=== PATIENT | male | born 1955 | race Caucasian/White ===

== ENCOUNTER 2019-02-03 15:41 | Observation (INO) ==
[2019-02-03] MEDS ORDERED: LOVENOX SUBQ ONE (16:38)
[2019-02-03 16:54] LABS: BASO# 0.02 X1000 (0.0-0.2); BASO% 0.3 % (0.0-0.8); EOS# 0.01 X1000 (0.0-0.7); EOS% 0.1 % (0.0-10.0); HEMATOCRIT 39.5 % (42.0-52.0); HEMOGLOBIN 13.1 g/dL (14.0-18.0); IMM GRAN# 0.01 X1000 (0.0-0.04); IMM GRAN% 0.1 % (0.0-0.5); LYMPH# 1.14 X1000 (1.2-3.4); LYMPH% 14.9 % (20.5-51.1); MCH 31.3 PG (27-31); MCHC 33.2 g/dL (33-37); MCV 94.3 FL (81-99); MONO# 0.11 X1000 (0.11-0.59); MONO% 1.4 % (1.7-9.3); MPV 11.2 FL (7.4-10.4); NEUT# 6.34 X1000 (1.4-6.5); NEUT% 83.2 % (42.2-75.2); PLT 152 X1000 (130-400); RBC 4.19 XMIL (4.7-6.1); RDW 13.6 % (11.5-14.5); WBC 7.63 X1000 (4.8-10.8)
--- NOTE | 2019-02-03 16:55 | PROVIDER DOCUMENTATION ---
HPI-General Adult - General Chief Complaint: General Adult Stated Complaint: POSS BLOOD CLOTS Time Seen by Provider: 02/03/19 16:38 Source: patient Allergies/Adverse Reactions: Patient Allergies Allergy/AdvReac Type Severity Reaction Status Date / Time codeine Allergy Intermediate RASH Verified 03/02/13 15:49 Home Medications: Home Medication List Medication Instructions Recorded Confirmed Last Taken Type Cyclobenzaprine HCl [Flexeril] 10 mg PO TID #15 tablet 03/02/13 Unknown Rx Naproxen 500 mg PO BID #60 tablet 03/02/13 08/14/13 06:30 Rx Buspar 15 mg PO BID 08/14/13 08/14/13 08/14/13 06:30 History Carvedilol [Coreg] 6.25 mg PO BID 08/14/13 08/14/13 08/14/13 06:30 History Clonidine [Catapres] 1 tab PO DAILY 08/14/13 08/14/13 08/14/13 06:30 History LISINOpril [Prinivil] 20 mg PO BID 08/14/13 08/14/13 08/14/13 06:30 History Lansoprazole [Prevacid] 30 mg PO DAILY 08/14/13 08/14/13 08/14/13 06:30 History PRAVAstatin [Pravachol] 40 mg PO DAILY 08/14/13 08/14/13 08/14/13 06:30 History Terazosin [Hytrin] 10 mg PO DAILY 08/14/13 08/14/13 08/14/13 06:30 History Benzonatate [Tessalon] 100 mg PO Q8H #0 capsule 08/18/13 Unknown Rx Levofloxacin [Levaquin] 500 mg PO DAILY #0 tablet 08/18/13 Unknown Rx Methylprednisolone [Medrol Dosepak] 4 mg PO DIRECTED #0 package 08/18/13 Unknown Rx Tiotropium [place] Inhaler 1 puff INH RTDAILY #0 inhaler 08/18/13 Unknown Rx [Spiriva] Cephalexin [Keflex] 500 mg PO BID #14 cap 12/22/17 Unknown Rx Hydrocodone/APAP 7.5 mg/325 mg 1 ea PO Q6H PRN PRN #12 tab 12/22/17 Unknown Rx [[place]-7.5] Past History - Adult - IMMUNIZATION STATUS Childhood Immunizations: See Nurse Assessment Flu Vaccine: See Nurse Assessment - FAMILY HISTORY Family History: reviewed, not pertinent Progress - PLAN OF CARE/RESULTS Progress/Plan/Lab Results: Vital Signs - 8 hr 02/03/19 15:47 Temperature 98.1 F Pulse Rate 116 H Respiratory Rate 19 Blood Pressure 152/92 O2 Sat by Pulse Oximetry 95 Orders Category Date Time Status CBC WITH DIFF [HEME] Stat Lab 02/03/19 16:13 Results COMPREHENSIVE METABOLIC PANEL [CHEM] Stat Lab 02/03/19 16:13 Received PROTIME WITH INR [COAG] Stat Lab 02/03/19 16:13 Received PTT [COAG] Stat Lab 02/03/19 16:13 Received Enoxaparin [Lovenox] Med 02/03/19 16:38 Discontinued 100 mg SUBQ NOW ONE EKG [EKG] Routine Ther 02/03/19 16:39 Ordered Result Diagrams: 02/03/19 16:13 Departure - Departure Referrals and Follow-Ups: Jessica Nuno MD [Primary Care Provider] -
--- NOTE | 2019-02-03 16:58 | PROVIDER DOCUMENTATION ---
This chart was entered by Brigid Kirkland Scribe, acting as scribe for Liam Mckeon MD. HPI-General Adult - General Chief Complaint: General Adult Stated Complaint: POSS BLOOD CLOTS Time Seen by Provider: 02/03/19 16:38 Source: patient Allergies/Adverse Reactions: Patient Allergies Allergy/AdvReac Type Severity Reaction Status Date / Time codeine Allergy Intermediate RASH Verified 03/02/13 15:49 Home Medications: Home Medication List Medication Instructions Recorded Confirmed Last Taken Type Cyclobenzaprine HCl [Flexeril] 10 mg PO TID #15 tablet 03/02/13 Unknown Rx Naproxen 500 mg PO BID #60 tablet 03/02/13 08/14/13 06:30 Rx Buspar 15 mg PO BID 08/14/13 08/14/13 08/14/13 06:30 History Carvedilol [Coreg] 6.25 mg PO BID 08/14/13 08/14/13 08/14/13 06:30 History Clonidine [Catapres] 1 tab PO DAILY 08/14/13 08/14/13 08/14/13 06:30 History LISINOpril [Prinivil] 20 mg PO BID 08/14/13 08/14/13 08/14/13 06:30 History Lansoprazole [Prevacid] 30 mg PO DAILY 08/14/13 08/14/13 08/14/13 06:30 History PRAVAstatin [Pravachol] 40 mg PO DAILY 08/14/13 08/14/13 08/14/13 06:30 History Terazosin [Hytrin] 10 mg PO DAILY 08/14/13 08/14/13 08/14/13 06:30 History Benzonatate [Tessalon] 100 mg PO Q8H #0 capsule 08/18/13 Unknown Rx Levofloxacin [Levaquin] 500 mg PO DAILY #0 tablet 08/18/13 Unknown Rx Methylprednisolone [Medrol Dosepak] 4 mg PO DIRECTED #0 package 08/18/13 Unknown Rx Tiotropium [place] Inhaler 1 puff INH RTDAILY #0 inhaler 08/18/13 Unknown Rx [Spiriva] Cephalexin [Keflex] 500 mg PO BID #14 cap 12/22/17 Unknown Rx Hydrocodone/APAP 7.5 mg/325 mg 1 ea PO Q6H PRN PRN #12 tab 12/22/17 Unknown Rx [[place]-7.5] - History of Present Illness -Gen Adult Nature of Presenting Problems: 63yom presents to ED cc blood clot in left leg that was found by PCP today. Pt cc SOB and pain in both legs. Pt reports he just got back from flying to and from [place]. Pt has hx of RA and has trouble walking/uses a cane. Location of Pain/Injury: reports: lower extremity (both legs), generalized Quality of Pain: reports: aching, tightness Severity: reports: moderate Onset/Duration: reports: unsure Timing: reports: still present Context/Activities at Onset: reports: light activity (flying) Modifying Factors: worse with: breathing, exercise, movement, palpation Associated Symptoms: reports: shortness of breath, weakness, trouble walking Similar Symptoms Previously?: Yes Recently seen or treated by another doctor?: Yes (saw PCP captain waiter/waitress at ED) Review of Systems - Adult - REVIEW OF SYSTEMS - ADULT Constitutional: reports: see HPI, fatique. denies: chills, fever Eyes: reports: no symptoms reported Ears, Nose, Mouth & Throat: reports: no symptoms reported Cardiovascular: reports: no symptoms reported Respiratory: reports: see HPI, shortness of breath Gastrointestinal: reports: no symptoms reported Genitourinary: reports: no symptoms reported Musculoskeletal: reports: see HPI, muscle aches, muscle weakness Integumentary: reports: no symptoms reported Neurological: reports: see HPI, loss of balance Psychiatric: reports: no symptoms reported Endocrine: reports: no symptoms reported Hematologic/Lymphatic: reports: no symptoms reported Allergic/Immunologic: reports: no symptoms reported All Other Systems: Reviewed and Negative Past History - Adult - PAST MEDICAL HISTORY-ADULT Review of Records: reports: Nursing Assessment Review, Medications Reviewed, Social history reviewed & non-contributory. Major Childhood Illnesses: reports: denies history Cardiovascular: reports: denies history Respiratory: reports: denies history Gastrointestinal: reports: denies history Obstetrical/Gynecological: reports: denies history Genitourinary: reports: denies history Musculoskeletal: reports: denies history Neurological: reports: denies history Endocrine/Immune: reports: denies history Other Conditions: reports: denies history - IMMUNIZATION STATUS Childhood Immunizations: See Nurse Assessment Flu Vaccine: See Nurse Assessment - FAMILY HISTORY Family History: reviewed, not pertinent - SOCIAL HISTORY Smoking: cigarettes, greater than 1 pack/day Provider spent 3-5 mins advising pt. on dangers of tobacco.: Discussed manners to quit use, and f/u contacts for add'l counseling. Physical Exam-General - PHYSICAL EXAM-ADULT Initial Vital Signs Reviewed: Yes - CONSTITUTIONAL General Appearance: appears well, alert, no apparent distress. negative: anxious, combative - EYES Eyes: PERRL/EOMI, pink conjunctivae. negative: photophobia - HEAD, EARS, NOSE, MOUTH & THROAT HENMT: normocephalic/atraumatic, moist mucous membranes. negative: angioedema - RESPIRATORY Respiratory: chest non-tender, lungs clear, normal breath sounds. negative: wheezing - CARDIOVASCULAR Cardiovascular: normal peripheral pulses, tachycardia. negative: regular rate, rhythm, bradycardia - MUSCULOSKELETAL Extremity: normal inspection, normal capillary refill. negative: swelling - SKIN Integumentary: normal color. negative: diaphoresis, jaundice - PSYCHIATRIC Psych/Mental Status: normal mood/affect, oriented x 3. negative: anxious, disheveled Progress - PLAN OF CARE/RESULTS Progress/Plan/Lab Results: Vital Signs - 8 hr 02/03/19 15:47 Temperature 98.1 F Pulse Rate 116 H Respiratory Rate 19 Blood Pressure 152/92 O2 Sat by Pulse Oximetry 95 Orders Category Date Time Status CBC WITH DIFF [HEME] Stat Lab 02/03/19 16:13 Results COMPREHENSIVE METABOLIC PANEL [CHEM] Stat Lab 02/03/19 16:13 Received PROTIME WITH INR [COAG] Stat Lab 02/03/19 16:13 Received PTT [COAG] Stat Lab 02/03/19 16:13 Received Result Diagrams: 02/03/19 16:13 - CONSULTS/PCP/HOSPITALIST Notification #1 *Consult/PCP/Hospitalist*: Dr. Jj Time Discussed: 16:48 Consult Disposition: other (pt will be admitted to [facility]) Departure - Departure Date of Disposition Decision: 02/03/19 Time of Disposition Decision: 16:45 DIAGNOSIS: DVT of lower extremity, bilateral Qualifiers: Affected thrombotic vein of extremity: unspecified vein of extremity Chronicity: unspecified Qualified Code(s): I82.403 - Acute embolism and thrombosis of unspecified deep veins of lower extremity, bilateral DIAGNOSIS: (Ruled Out): DVT of axillary vein, acute bilateral Disposition: ADMITTED INPATIENT 09 Certified Medical Emergency: Emergent Condition: Stable Additional Freetext Instructions: ED Follow Up Instructions: You have been treated by a care provider in the Emergency Department. These instructions are being provided to you so you can have an understanding of how to care for yourself upon discharge. Upon discharge from the Emergency D epartment, you are responsible for making arrangements for follow-up care by a physician of your choice. Take all prescribed medications as directed. Return to the Emergency Department immediately for any new or worsening symptoms. You may call the Physician Referral phone number at [phone] to obtain a list of Physicians who are taking new patients. Referrals and Follow-Ups: Jessica Nuon MD [Primary Care Provider] - Discharge Education: Steps to Quit Smoking, [id number], Deep Vein Thrombosis - Critical Care Note This patient required my direct & personal management of CC.: No Attestation - Physician/ CANDICE Attestation Patient care was provided by Advanced Practice Provider:: No The physician spent face to face time with patient:: Yes Advanced Practice Provider documentation review:: Supervising physician onsite and consulted in the evaluation and care of this patient. The physician did have a face to face encounter with the patient. This chart was documented by the indicated scribe, (Brigid Kirkland Scribe) and accurately reflects the services I performed and decisions made by me, Liam Mckeon MD, as attested by the provider's signature.
[2019-02-03 17:01] LABS: INR 0.93; PROTIME 12.9 Seconds (11.0-16.0)
[2019-02-03 17:06] LABS: CALCIUM 8.6 mg/dL (8.8-10.2); CREATININE 1.3 mg/dL (0.7-1.2); POTASSIUM 4.4 mmol/L (3.5-5.1); TOTAL BILIRUBIN 0.3 mg/dL (0.20-1.00); TOTAL PROTEIN 6.7 g/dL (6.3-8.3)
[2019-02-03] MEDS ORDERED: TYLENOL PO PRN (17:58)
[2019-02-03] MEDS ORDERED: ZOFRAN IV PRN (17:58)
[2019-02-03] MEDS ORDERED: MORPHINE IV ONE (18:19)
[2019-02-03] MEDS ORDERED: XANAX PO ONE (18:20)
[2019-02-03] MEDS ORDERED: XANAX PO PRN (18:20)
[2019-02-03] MEDS ORDERED: XOPENEX NEB INH PRN (18:28)
[2019-02-03] MEDS: XOPENEX NEB INH SCH ×2 (19:42→23:26)
[2019-02-03] MEDS: NORCO-10 PO PRN (20:54)
[2019-02-03] MEDS: PEPCID PO SCH (20:54)
--- NOTE | 2019-02-03 23:25 | HISTORY AND PHYSICAL ---
PRIMARY CARE PROVIDER: Dr. Nuno. CHIEF COMPLAINT: Patient was sent to the ED by his primary care provider, Dr. Nuno, for imaging that showed bilateral pulmonary emboli. HISTORY OF PRESENT ILLNESS: Mr. Avila is a 63-year-old male who carries a past medical history of rheumatoid arthritis, coronary artery disease status post stenting, I believe to the RCA with a [employer], non-Hodgkin's lymphoma, it has been in remission since 1999, COPD, continues to smoke 1 pack per day, nonfunctioning left kidney, internal hemorrhoids, BPH, hypertension general anxiety, hyperlipidemia, GERD. He underwent a pulmonary arteriogram today for Dr. Nuno for shortness of breath and edema. He had recent travel to [place] 1 week ago. He flew out there for his daughter's , who he suddenly lost undergoing a routine GI procedure. He reports that he has had some hemoptysis as well as some bright red blood per rectum that has been going on for quite some time, that happens intermittently. He does report subjective fever and chills. However, he also complains of being hot all the time. He has had some chest pain associated with his shortness of breath. He complains of left leg pain. There is no nausea, vomiting, diarrhea. He reports that he has had a couple of syncopal episodes since all this began this week. He states he starts coughing and gets so short of breath that he will just lose consciousness. He was initiated on full dose Lovenox in the ER, and which we will continue with that q.12 hours and do a hypercoagulable workup. PAST MEDICAL HISTORY: 1. Non-Hodgkin's lymphoma. 2. Rheumatoid arthritis. 3. Coronary artery disease status post stenting, I believe, to the RCA. 4. COPD, continues to smoke a pack a day. 5. Left nonfunctioning kidney. 6. Benign prostatic hypertrophy. 7. Hypertension. 8. Internal hemorrhoids. 9. Generalized anxiety. 10. Hyperlipidemia. 11. GERD. PAST SURGICAL HISTORY: 1. Appendectomy. 2. Back surgery. 3. Left ankle surgery. 4. Removal of cyst from the left testicle. 5. Bilateral inguinal hernia repair. 6. Left shoulder surgery. 7. Right carpal tunnel. HOME MEDICATIONS: Have not been verified. ALLERGIES: Codeine. SOCIAL HISTORY: He is . He just recently lost his daughter at the age of 41 due to a routine GI procedure, this was the reason for his recent travel to [place]. He has been disabled for the past 5 years. He used to be a truck and transport mechanic. He lives in [place]. He continues to smoke 1 pack of cigarettes per day and has done so for more than 30 years. Occasional alcohol, occasional marijuana to help with his nerves. FAMILY HISTORY: Father of lung cancer at the age of 82. Mom of COPD, also had diabetes. REVIEW OF SYSTEMS: Twelve-point review of systems completely negative except for those mentioned in HPI. PHYSICAL EXAMINATION: VITAL SIGNS: Temperature is 98 degrees, heart rate 94, respirations 20, blood pressure 149/98, O2 saturation is 98% on room air. GENERAL: Mr. Avila is a very anxious appearing 63-year-old male who is sitting up in the bed, in no apparent distress, is very talkative. HEENT: Atraumatic, normocephalic. PERRL. NECK: Supple. Trachea midline. CARDIOVASCULAR: S1, S2 appreciated. No murmurs, gallops, rubs noted. RESPIRATORY: Lung sounds clear bilaterally. GASTROINTESTINAL: Soft, nontender, nondistended. Positive bowel sounds 4 quadrants. EXTREMITIES: Lower extremities are negative for edema. Bilateral pedal pulses are palpable. NEUROLOGIC: No focal deficits are noted. He does walk with a cane. DIAGNOSTIC DATA: Pulmonary arteriogram shows several bilateral PE's that appear mostly to be acute. LABORATORY DATA: White count 7, hemoglobin and hematocrit 13 and 39, platelet count is 152,000. Sodium 138, potassium 4.4, BUN 13, creatinine 1.3. Blood glucose is 166. PT 12, INR 0.93. ASSESSMENT AND PLAN: 1. Acute bilateral pulmonary emboli. He has been given a full dose of subcu Lovenox in the ED. We will continue with full-dose Lovenox q.12 hours. We will do a hypercoagulable workup. Continue him on supplemental O2. Pain control. 2. Generalized anxiety. We will give him Xanax and p.r.n. Xanax. 3. Coronary artery disease status post stenting. 4. Hypertension. 5. Hyperlipidemia. 6. History of non-Hodgkin's lymphoma. 7. Left nonfunctioning kidney. 8. Chronic obstructive pulmonary disease. We will do Xopenex scheduled and p.r.n. 9. Tobacco use and abuse. The patient will need further smoking cessation education. 10. Marijuana use, only occasionally for anxiety. 11. Further recommendation to follow physician evaluation, laboratory, and diagnostic data, and update of home medications. Dictated by TIFFANI Dupree for Gabriel Mack MD cc: MD Jessica Gill MD
[2019-02-04] MEDS: LOVENOX SUBQ SCH ×2 (05:51→18:17)
--- NOTE | 2019-02-04 06:02 | HISTORY AND PHYSICAL ---
ADDENDUM: Patient seen and examined by myself. Full note dictated and discussed with nurse practitioner. Patient presented to the hospital with an elevated D-dimer and pulmonary emboli. Upon coming into the hospital, placed him on Lovenox. Hopefully, he can transition to Xarelto or Eliquis and be discharged home over the next day or so. cc: Gabriel Mack MD
[2019-02-04 06:58] LABS: BASO# 0.02 X1000 (0.0-0.2); BASO% 0.2 % (0.0-0.8); EOS# 0.03 X1000 (0.0-0.7); EOS% 0.3 % (0.0-10.0); HEMATOCRIT 36.5 % (42.0-52.0); HEMOGLOBIN 11.9 g/dL (14.0-18.0); IMM GRAN# 0.03 X1000 (0.0-0.04); IMM GRAN% 0.3 % (0.0-0.5); LYMPH# 4.75 X1000 (1.2-3.4); LYMPH% 46.8 % (20.5-51.1); MCH 30.7 PG (27-31); MCHC 32.6 g/dL (33-37); MCV 94.1 FL (81-99); MONO# 0.87 X1000 (0.11-0.59); MONO% 8.6 % (1.7-9.3); NEUT# 4.45 X1000 (1.4-6.5); NEUT% 43.8 % (42.2-75.2); PLT 138 X1000 (130-400); RBC 3.88 XMIL (4.7-6.1); RDW 13.5 % (11.5-14.5); WBC 10.15 X1000 (4.8-10.8)
[2019-02-04 07:29] LABS: AGAP 9; ALBUMIN 3.6 g/dL (3.5-5.0); ALKALINE PHOSPHATASE 57 U/L (32-122); BUN 19 mg/dL (8-22); CALCIUM 8.3 mg/dL (8.8-10.2); CHLORIDE 102 mmol/L (98-107); COSMO 280; ESTIMATED GFR > 60; GLUCOSE 102 mg/dL (70-104); GOT 11 U/L (10-34); GPT 9 U/L (10-44); POTASSIUM 3.9 mmol/L (3.5-5.1); SODIUM 139 mmol/L (136-145); TCO2 28 mmol/L (25-35)
[2019-02-04] MEDS ORDERED: MORPHINE IV PRN (08:17)
[2019-02-04] MEDS: CELEBREX PO SCH ×2 (08:58→21:21)
[2019-02-04] MEDS: CYMBALTA PO SCH (08:58)
[2019-02-04] MEDS: SINGULAIR PO SCH (08:59)
[2019-02-04] MEDS: PEPCID PO SCH ×2 (08:59→21:22)
--- NOTE | 2019-02-04 08:59 | EKG Report ---
Test Performed on : 02/04/2019 08:27:26 AM Test Reason : CHEST PAIN Blood Pressure : / mmHG Vent. Rate : 075 BPM Atrial Rate : 075 BPM P-R Int : 148 ms QRS Dur : 086 ms QT Int : 388 ms P-R-T Axes : 053 067 061 degrees QTc Int : 433 ms Normal sinus rhythm. Normal ECG When compared with ECG of 15-AUG-2013 06:58, No significant change was found Confirmed by Liam Mckeon MD ([id number]) on 02/18/2019 11:49:40 AM
[2019-02-04] MEDS: ZYLOPRIM PO SCH ×2 (09:00→21:22)
[2019-02-04] MEDS ORDERED: PREDNISONE PO SCH (09:00)
[2019-02-04] MEDS: PRINIVIL PO SCH (09:01)
[2019-02-04] MEDS: COREG PO SCH ×2 (09:01→21:22)
[2019-02-04] MEDS: FOLIC ACID PO SCH (09:01)
[2019-02-04] MEDS: XOPENEX NEB INH SCH (09:11)
[2019-02-04] MEDS ORDERED: ATIVAN IV ONE (09:23)
--- NOTE | 2019-02-04 13:21 | PROGRESS NOTE ---
DATE: 02/04/2019 SUBJECTIVE: The patient is feeling somewhat better, although he has been having body aches. He denies having any other issues. OBJECTIVE: Vital Signs: Temperature 98.4 degrees, pulse 84 per minute, respiratory rate 16 per minute, blood pressure 199/134, pulse oximetry 100% on room air. General: The patient is alert and oriented x3. He appears to be very anxious. Cardiovascular System: First and second heart sounds are audible without any murmurs or gallops. Respiratory System: Bilateral lung air entry is moderately decreased with bilateral rhonchi present on expiration. Gastrointestinal: Abdomen is benign. DIAGNOSTIC DATA: CBC shows WBC count of 10.15, hematocrit is 36.5, hemoglobin 11.9, and platelet count of 138,000. Comprehensive metabolic panel done this morning is nondiagnostic. He does have improvement of creatinine from 1.3 yesterday to 1.0 today. IMPRESSION: 1. Acute bilateral pulmonary embolism. 2. Chronic obstructive pulmonary disease. 3. Coronary artery disease that is stable. 4. Hypertension that is uncontrolled. 5. Rheumatoid arthritis. 6. Anxiety disorder. PLAN: The patient will be continued on enoxaparin 100 mg subcutaneously every 12 hours. We are going to restart his home medications including duloxetine and lisinopril along with carvedilol since his blood pressure has been elevated. He will receive bronchodilators on an as needed basis, and I am going to give him morphine sulfate 2 mg IV as needed for body aches and pain. He can probably be discharged home tomorrow if stable on oral anticoagulants. He will need to complete a therapy of Xarelto or similar anticoagulants for at least 6 months. cc: Jessica Nuno MD
[2019-02-04] MEDS: ATIVAN IV PRN (18:17)
[2019-02-04] MEDS ORDERED: HYTRIN PO SCH (21:00)
[2019-02-04] MEDS ORDERED: CRESTOR PO SCH (21:00)
[2019-02-05] MEDS: ATIVAN IV PRN ×2 (00:05→08:57)
[2019-02-05] MEDS: NORCO-10 PO PRN (00:05)
[2019-02-05] MEDS: LOVENOX SUBQ SCH (06:15)
[2019-02-05] MEDS ORDERED: NEXIUM PO SCH (07:00)
[2019-02-05 08:15] VITALS: BP 185/101
[2019-02-05] MEDS: ZYLOPRIM PO SCH (08:56)
[2019-02-05] MEDS: PRINIVIL PO SCH (08:56)
[2019-02-05] MEDS: COREG PO SCH (08:56)
[2019-02-05] MEDS: CYMBALTA PO SCH (08:56)
[2019-02-05] MEDS: CELEBREX PO SCH (08:56)
[2019-02-05] MEDS: PEPCID PO SCH (08:57)
[2019-02-05] MEDS: SINGULAIR PO SCH (08:57)
[2019-02-05] MEDS: FOLIC ACID PO SCH (08:57)
--- NOTE | 2019-02-05 16:46 | DISCHARGE SUMMARY ---
ADMISSION DATE: 02/03/2019 DISCHARGE DATE: 02/05/2019 DISCHARGE DIAGNOSES: 1. Acute bilateral pulmonary emboli. 2. Chronic obstructive pulmonary disease. 3. Coronary artery disease. 4. Hypertension. 5. Rheumatoid arthritis. 6. Anxiety disorder. HOSPITAL COURSE: Mr. Avila is a 63-year-old gentleman who has extensive past medical history including rheumatoid arthritis, coronary artery disease, COPD, and hypertension. He presented to the office last week with issue of cough and chest congestion. He was also having wheezing. He reported some recent travel to [place] for his daughter's at which time he had reported to have bilateral leg swelling. He had a venous Doppler ultrasound study of his left lower extremity; that was found to be negative. Subsequently, he had a CT scan of the chest for pulmonary arteries, and that showed bilateral pulmonary emboli, for which he was admitted to the hospital and was treated with enoxaparin 1 mg/kg subcutaneously every 12 hours. He has also been having significant anxiety that was treated with IV lorazepam. His overall condition has improved, and therefore he is planned to be discharged home today. I have given him 2 weeks' worth of Xarelto 15 mg to be taken as twice daily, and we are going to see if we can get him approval for the medication through his insurance. I have advised him that he will need to take Xarelto 15 mg twice daily for 3 weeks and then take Xarelto as 20 mg once daily thereafter to complete the course of 6 months. DISCHARGE MEDICATIONS: 1. Xarelto 15 mg orally twice daily for 3 weeks and then continue as 20 mg orally once daily for a total of 6 months. 2. Allopurinol 150 mg orally twice daily. 3. Alprazolam 0.5 mg 3 times a day as needed for pain. 4. [place] 10 mg orally every 6 hours as needed for significant pain. 5. Carvedilol 3.125 mg orally twice daily. 6. Duloxetine 90 mg orally once daily. 7. Nexium 40 mg orally once daily in the morning 8. Enbrel 50 mg subcutaneously as ordered. 9. Folic acid 1 mg orally once daily. 10. Lisinopril 20 mg orally once daily. 11. Montelukast 10 mg orally once daily. 12. Prednisone 60 mg orally once every other day. 13. Crestor 40 mg orally once daily at bedtime. 14. Terazosin 10 mg orally once daily at bedtime. FOLLOWUP: He can follow up with me in the office in approximately 5 days. CONDITION: Stable. DISPOSITION: Home. cc: Jessica Nuno MD
== END 2019-02-05 10:05 | disposition home or self-care (01) ==
LOC: P.MEDSURG 15:41 → P.ED 15:41 → SUATTDRO 15:42
PROVIDERS: ATTEND Internal Medicine